=== PATIENT | female | born 1980 | race Hispanic/Latino ===

== ENCOUNTER 2017-08-08 09:57 | Emergency (ER) | payer SELFPAY ==
[~2017-08-08 09:57] MED LIST: AMLO5TAB4 PO; HYDR-4153 PO; Losartan Potassium PO; MAGOX PO; METO25 PO; SPIR25TA PO
[2017-08-08] MEDS ORDERED: MECLIZINE HCL 25 MG TABLET ONE (10:16)
== END 2017-08-08 10:59 | disposition home or self-care (01) ==
LOC: EDH 09:57
DX: H81.10 Benign paroxysmal vertigo, unspecified ear (principal); R07.89 Other chest pain; I10 Essential (primary) hypertension
CPT/HCPCS: 93005

== ENCOUNTER 2022-10-10 10:03 | Inpatient (IN) | payer OTHER ==
[~2022-10-10] VITALS: Ht 160 cm; Wt 72.0 kg
[~2022-10-10 10:03] MED LIST changes: +MAGN400T7 PO; -MAGOX PO
[2022-10-10] MEDS ORDERED: PHENAZOPYRIDINE HCL 200 MG TABLET PO ONE (10:30)
[2022-10-10] MEDS ORDERED: KETOROLAC 60 MG VIAL (30MG/ML) IM ONE (10:30)
[2022-10-10 10:48] LABS: BASOPHILS % (AUTO) 0.3 % (0.0-5.0); EOSINOPHILS % (AUTO) 0.5 % (0.0-8.0); HEMATOCRIT 41.2 % (36-48); LYMPHOCYTES % (AUTO) 16.4 % (21.0-51.0); MEAN CORPUSCULAR HEMOGLOBIN 32.3 pg (27.0-33.0); MEAN CORPUSCULAR HGB CONC 33.7 g/dL (32.0-36.0); MEAN CORPUSCULAR VOLUME 95.8 fL (79-99); MONOCYTES % (AUTO) 7.5 % (3.0-13.0); NEUTROPHILS % (AUTO) 74.9 % (40.0-77.0); PLATELET COUNT (AUTO) 252 K/uL (130-400); RED CELL DISTRIBUTION WIDTH 12.4 % (11.0-15.5); WHITE BLOOD COUNT (AUTO) 14.9 K/uL (4.8-10.8)
[2022-10-10 10:57] LABS: APPEARANCE,URINE CLEAR (CLEAR); BILIRUBIN,URINE NEGATIVE (NEGATIVE); COLOR,URINE LIGHT-YELLOW (YELLOW); GLUCOSE, URINE (UA) NEGATIVE (NEGATIVE); KETONES,URINE 10 mg/dL (NEGATIVE); LEUKOCYTE ESTERASE ,URINE NEGATIVE Leu/uL (NEGATIVE); NITRATE,URINE NEGATIVE (NEGATIVE); OCCULT BLOOD,URINE NEGATIVE (NEGATIVE); PH,URINE 5.5 (5.0-8.0); PROTEIN,URINE NEGATIVE (NEGATIVE); UROBILINOGEN,URINE 0.2 mg/dL (0.2-1.0)
[2022-10-10 11:07] LABS: ALBUMIN 3.6 g/dL (3.5-5.0); CREATININE 0.8 mg/dL (0.5-1.5); POTASSIUM 3.4 mmol/L (3.5-5.1); TOTAL PROTEIN, SERUM 7.8 g/dL (6.0-8.3)
[2022-10-10 11:09] LABS: BACTERIA,URINE RARE /HPF (None Seen); RBC,URINE 0-1 /HPF (0-1); SQUAMOUS EPITHELIAL CELL,UR FEW /HPF (0-2)
[2022-10-10] MEDS ORDERED: AMLO-258 PO (12:20)
[2022-10-10] MEDS ORDERED: LINA145C PO (12:20)
[2022-10-10] MEDS ORDERED: VALS1TAB81 PO (12:20)
[2022-10-10] MEDS ORDERED: SPIR25TA6 PO (12:20)
[2022-10-10] MEDS ORDERED: HYDR-4154 PO (12:20)
[2022-10-10] MEDS ORDERED: SEMA0.258 SQ (13:59)
[2022-10-10] MEDS ORDERED: MELA5TAB14 PO (13:59)
[2022-10-10] MEDS ORDERED: MAGN400T53 PO (13:59)
[2022-10-10] MEDS ORDERED: ONDANSETRON 4MG INJ IVP PRN (14:00)
[2022-10-10] MEDS ORDERED: 0.9%NACL 50ML IV SCH (14:00)
[2022-10-10] MEDS ORDERED: MORPHINE 2 MG SYG IVP PRN ×2 (14:00→22:00)
[2022-10-10] MEDS ORDERED: MORPHINE 4 MG SYG IVP ONE (14:00)
[2022-10-10] MEDS ORDERED: ZOSYN 3.375GM +NS 50ML IVPB ONE (14:00)
[2022-10-10] MEDS ORDERED: ONDANSETRON 4MG INJ IVP ONE (14:00)
[2022-10-10] MEDS: 0.9%NACL 1000ML 1,000 ML IV SCH ×2 (14:04→22:45)
[2022-10-10] MEDS ORDERED: POTASSIUM BICARB/CIT AC 25 MEQ TABLET.EFF ONE (16:51)
[2022-10-10] MEDS ORDERED: POTASSIUM BICARB/CIT AC 25 MEQ TABLET.EFF PO ONE (17:00)
[2022-10-10] MEDS: ZOSYN 3.375GM +NS 50ML IVPB SCH (17:05)
[2022-10-10] MEDS ORDERED: LIDOCAINE HCL-MPF 1% 2ML VIAL IV PRN (18:00)
[2022-10-10] MEDS ORDERED: POTASSIUM CHLORIDE 10% ELIXIR 20 MEQ/15 ML UDCUP PO PRN (18:00)
[2022-10-10] MEDS ORDERED: LACTULOSE 20 GM/30 ML UDCUP PO PRN (18:00)
[2022-10-10] MEDS ORDERED: POTASSIUM CHLORIDE 20MEQ/100ML 100 ML IV PRN (18:00)
[2022-10-10] MEDS ORDERED: HYDRALAZINE 25MG TABLET PO PRN (18:00)
[2022-10-10] MEDS ORDERED: AMLODIPINE 5 MG TAB PO PRN (18:00)
[2022-10-10] MEDS ORDERED: ACETAMINOPHEN 325 MG TAB PO PRN ×2 (18:00)
[2022-10-10] MEDS ORDERED: DIPHENHYDRAMINE HCL 25 MG CAPSULE PO PRN (18:00)
[2022-10-10] MEDS ORDERED: KETOROLAC 30MG VIAL (30MG/ML) IVP PRN (18:00)
[2022-10-10] MEDS ORDERED: MAG/ALUM/SIMETH 30 ML UDCUP PO PRN (18:00)
[2022-10-10 22:10] VITALS: BP 123/75
[2022-10-11] VITALS: BP 112/69
[2022-10-11] MEDS: ZOSYN 3.375GM +NS 50ML IVPB SCH (02:13)
[2022-10-11 04:00] VITALS: BP 102/65
[2022-10-11 06:11] LABS: HEMATOCRIT 37.1 % (36-48); MEAN CORPUSCULAR HEMOGLOBIN 32.2 pg (27.0-33.0); MEAN CORPUSCULAR HGB CONC 33.7 g/dL (32.0-36.0); MEAN CORPUSCULAR VOLUME 95.6 fL (79-99); RED BLOOD CELL COUNT(AUTO) 3.88 MIL/uL (4.00-5.50); RED CELL DISTRIBUTION WIDTH 12.4 % (11.0-15.5); WHITE BLOOD COUNT (AUTO) 9.7 K/uL (4.8-10.8)
[2022-10-11] MEDS: 0.9%NACL 1000ML 1,000 ML IV SCH (06:19)
[2022-10-11 06:24] LABS: CREATININE 0.8 mg/dL (0.5-1.5); POTASSIUM 3.3 mmol/L (3.5-5.1)
[2022-10-11] MEDS: KCL 20 MEQ ERTAB PO PRN ×2 (06:50→10:05)
[2022-10-11] MEDS ORDERED: LEVO-70 PO (08:00)
[2022-10-11] MEDS ORDERED: METR-172 PO (08:00)
[2022-10-11 08:54] VITALS: BP 106/69
[2022-10-11] MEDS ORDERED: METRONIDAZOLE 500 MG TABLET PO SCH (09:00)
[2022-10-11] MEDS ORDERED: LEVOFLOXACIN 500 MG TABLET PO SCH (09:00)
[2022-10-11 11:44] VITALS: BP 114/72
[2022-10-11 16:24] VITALS: BP 117/70
== END 2022-10-11 16:10 | disposition home or self-care (01) | DRG 392 ==
LOC: EDH 10:03 → EDHIP 13:35 → 3CH 22:26
PROVIDERS: ADMIT Internal Medicine; ATTEND Internal Medicine
DX: K57.32 Diverticulitis of large intestine without perforation or abscess without bleeding (principal); I10 Essential (primary) hypertension; E28.2 Polycystic ovarian syndrome; D25.9 Leiomyoma of uterus, unspecified; E78.2 Mixed hyperlipidemia; Z90.711 Acquired absence of uterus with remaining cervical stump; Z82.49 Family history of ischemic heart disease and other diseases of the circulatory system
CPT/HCPCS: 36415; 74176; 80048; 80053; 81001; 85025; 85027; 87040; 87088; G0378; J1885; J2543